=== PATIENT | female | born 1960 | race Caucasian/White ===

== ENCOUNTER 2020-11-08 15:37 | Day surgery (SDCO) | payer OTHER ==
[~2020-11-08] VITALS: Ht 162.6 cm; Wt 86.4 kg
[~2020-11-08 15:37] MED LIST: ANORO ELLIPTA1 EACH INH; COLACE100 MG PO; Dulera INH; FEOSOL325 MG PO; K-DUR20 MEQ PO; LASIX20 MG PO; MOBIC15 MG PO; NEURONTIN100 MG PO; NIZORAL CREAM 330 GM TOP; PRAVACHOL40 MG PO; PRILOSEC20 MG PO; PRINIVIL20 MG PO; PROAIR HFA8.5 GM INH; REQUIP4 MG PO; TRAMADOL HCL50 MG PO; TRAZODONE HCL100 MG PO; TRELEGY ELLIPT1 EACH PO; VENTOLIN HFA IN18 GM PO; ZOCOR40 MG PO; ZOLOFT100 M1 PO; ZYPREXA 5MG TABL5 MG PO
[2020-11-08 16:37] LABS: BASOPHIL 0.6 % (0-2); EOSINOPHIL 6.2 % (0-5); HCT 42.6 % (37.0-47.0); HGB 13.7 g/dl (12.5-16.0); LYMPHOCYTE 28.1 % (15-48); MCH 29.7 pg (25.0-31.0); MCHC 32.2 g/dL (32.0-36.0); MCV 92.2 fL (78.0-100.0); MONOCYTE 6.6 % (0-12); MPV 11.4 fL (6.0-9.5); NEUTROPHIL 58.2 % (41-80); NRBC 0; PLT 156 K/uL (150-400); RBC 4.62 M/uL (4.20-5.40); WBC 6.3 K/uL (4.0-10.5)
[2020-11-08 16:56] LABS: ALBUMIN 3.8 g/dL (3.4-5.0); BILIRUBIN - TOTAL 0.7 mg/dL (0.2-1.0); CREATININE 0.84 mg/dL (0.51-0.95); GLOBULIN (CALCULATION) 2.5 g/dL; POTASSIUM 4.6 mmol/L (3.5-5.1); TOTAL PROTEIN 6.3 g/dL (6.4-8.2)
[2020-11-08 17:03] LABS: PRO-BNP 173 pg/mL (<125)
[2020-11-08 17:35] LABS: BILIRUBIN NEGATIVE (NEGATIVE); BLOOD NEGATIVE Ery/uL (NEGATIVE); CLARITY CLEAR (CLEAR); COLOR YELLOW (YELLOW); GLUCOSE (U) NORMAL (NORMAL); LEUKOCYTES NEGATIVE Leu/uL (NEGATIVE); NITRITE NEGATIVE (NEGATIVE); PROTEIN NEGATIVE (NEGATIVE); SPECIFIC GRAVITY 1.015 (1.001-1.030); UROBILINOGEN 0.2 mg/dL (0.2-1.0)
[2020-11-08 18:34] LABS: CORONAVIRUS 2019 SARS-COV-2 POSITIVE (NEGATIVE); INFLUENZA A NAA NEGATIVE (NEGATIVE)
[2020-11-09 03:07] LABS: CREATININE 1.1 mg/dL (0.51-0.95); MAGNESIUM 2.3 mg/dL (1.8-2.4); POTASSIUM 4.6 mmol/L (3.5-5.1)
[2020-11-09 03:22] LABS: BASOPHIL 0.2 % (0-2); EOSINOPHIL 0.2 % (0-5); HCT 40.3 % (37.0-47.0); HGB 13.2 g/dl (12.5-16.0); LYMPHOCYTE 9.3 % (15-48); MCH 30.3 pg (25.0-31.0); MCHC 32.8 g/dL (32.0-36.0); MCV 92.6 fL (78.0-100.0); MONOCYTE 0.7 % (0-12); MPV 11.5 fL (6.0-9.5); NEUTROPHIL 89.1 % (41-80); NRBC 0; PLT 155 K/uL (150-400); RBC 4.35 M/uL (4.20-5.40); RDW 13.8 % (11.5-14.0); WBC 6.1 K/uL (4.0-10.5)
[2020-11-10 06:17] LABS: BASOPHIL 0 % (0-2); EOSINOPHIL 0 % (0-5); HCT 39.6 % (37.0-47.0); HGB 12.5 g/dl (12.5-16.0); LYMPHOCYTE 7.1 % (15-48); MCH 29.8 pg (25.0-31.0); MCHC 31.6 g/dL (32.0-36.0); MCV 94.3 fL (78.0-100.0); MONOCYTE 3.6 % (0-12); MPV 11.9 fL (6.0-9.5); NEUTROPHIL 88.6 % (41-80); NRBC 0; PLT 160 K/uL (150-400); RDW 14.2 % (11.5-14.0)
[2020-11-10 06:58] LABS: ALBUMIN 3.4 g/dL (3.4-5.0); BILIRUBIN - TOTAL 0.3 mg/dL (0.2-1.0); BUN/CREAT RATIO (CALC) 25.5 RATIO; CREATININE 0.94 mg/dL (0.51-0.95); GLOBULIN (CALCULATION) 2.9 g/dL; MAGNESIUM 2.2 mg/dL (1.8-2.4); PHOSPHORUS 3.7 mg/dL (2.6-4.7); TOTAL PROTEIN 6.3 g/dL (6.4-8.2)
--- NOTE | 2020-11-11 05:24 | NUR ---
PANCHO MCDONALD RN VERIFED THAT ALL DOCUMENTATION WAS TRUE AND ACCURATE.
[2020-11-11] MEDS ORDERED: LASIX20 MG PO (10:01)
[2020-11-11] MEDS ORDERED: ZINC SULFATE220 M1 PO (10:01)
[2020-11-11] MEDS ORDERED: THIAMINE HCL100 MG PO (10:01)
[2020-11-11] MEDS ORDERED: DEXAMETHASONE 2M2 MG PO (10:01)
[2020-11-11] MEDS ORDERED: DUONEB 2.5-0.5M1 AMP INH (10:01)
[2020-11-11] MEDS ORDERED: ASCORBIC ACID500 MG PO (10:01)
[2020-11-11] MEDS ORDERED: DOXYCYCLINE MO100 MG PO (10:01)
[2020-11-11] MEDS ORDERED: CEFDINIR300 MG PO (10:01)
[2020-11-11] MEDS ORDERED: VITAMIN D31250 MC1 PO (10:01)
[2020-11-11] MEDS ORDERED: NORCO 5-325 TA1 EACH PO (10:52)
[2020-11-11] MEDS ORDERED: NICOTINE PATCH1 EAC2 TD (11:33)
--- NOTE | 2020-11-11 13:40 | NUR ---
11/11/20 Ms. Reyes lies at home with her spouse. She was indepedent prior to admissiom. Per pt choice, referrals have been made to [facility] for a 3in1 and 02 and [facility]. Affliation explained. [facility] was notified of discharge.
== END 2020-11-11 14:22 | disposition home health service (06) ==
LOC: FER 15:37 → FMS 20:01
PROVIDERS: Allergy & Immunology; Nurse Practitioner; Nurse Practitioner Family; ADMIT Internal Medicine
DX: U07.1 COVID-19 (principal); J12.82 Pneumonia due to coronavirus disease 2019; J96.91 Respiratory failure, unspecified with hypoxia; J44.1 Chronic obstructive pulmonary disease with (acute) exacerbation; I50.9 Heart failure, unspecified; K21.9 Gastro-esophageal reflux disease without esophagitis; F17.210 Nicotine dependence, cigarettes, uncomplicated; Z85.51 Personal history of malignant neoplasm of bladder; Z79.899 Other long term (current) drug therapy; Z88.5 Allergy status to narcotic agent; Z88.6 Allergy status to analgesic agent
CPT/HCPCS: 36415; 36600; 71045; 71101; 80048; 80053; 81003; 82803; 83605; 83735; 83880; 84100; 84484; 85025; 85379; 93005; 94010; 94640; 94760; 94762; 97116; 97162; 97530-GP; C9399; G0378; J0696; J1100; J1650; J2405; J2920; J2930; J7050; J7120; U0002

== ENCOUNTER 2022-01-16 06:32 | Inpatient (IN) | payer OTHER ==
[~2022-01-16] VITALS: Ht 162.6 cm; Wt 85.0 kg
[~2022-01-16 06:32] MED LIST changes: +ASCORBIC ACID500 MG PO; +CEFDINIR300 MG PO; +DEXAMETHASONE 2M2 MG PO; +DOXYCYCLINE MO100 MG PO; +DUONEB 2.5-0.5M1 AMP INH; +NICOTINE PATCH1 EAC2 TD; +NORCO 5-325 TA1 EACH PO; +THIAMINE HCL100 MG PO; +VITAMIN D31250 MC1 PO; +ZINC SULFATE220 M1 PO
[2022-01-16 07:34] LABS: RETICULOCYTE COUNT 1.8 % (1.0-2.0)
[2022-01-16 07:36] LABS: CORONAVIRUS 2019 SARS-COV-2 NEGATIVE (NEGATIVE); INFLUENZA A NAA NEGATIVE (NEGATIVE)
[2022-01-16 07:37] LABS: INR 0.97 (0.9-1.2); PROTHROMBIN TIME 12.3 SECONDS (11.8-13.4)
[2022-01-16 07:38] LABS: PTT 29.3 SECONDS (24.4-34.7)
[2022-01-16 08:06] LABS: LACTIC ACID 0.9 mmol/L (0.4-1.9)
[2022-01-16 08:53] LABS: ALBUMIN 4.3 g/dL (3.4-5.0); ALKALINE PHOSHATASE 80 U/L (46-116); ALT 32 U/L (14-59); AST 32 U/L (15-37); BILIRUBIN - TOTAL 0.5 mg/dL (0.2-1.0); BUN 14 mg/dL (7-18); BUN/CREAT RATIO (CALC) 15.9 RATIO; CHLORIDE 98 mmol/L (98-107); CO2 (BICARBONATE) 35 mmol/L (21-32); CREATININE 0.88 mg/dL (0.51-0.95); GLOBULIN (CALCULATION) 3.6 g/dL; GLUCOSE 120 mg/dL (74-106); TOTAL PROTEIN 7.9 g/dL (6.4-8.2)
[2022-01-16 09:35] LABS: BASOPHIL 0.4 % (0-2); EOSINOPHIL 0.4 % (0-5); HCT 42.3 % (37.0-47.0); HGB 13.6 g/dl (12.5-16.0); LYMPHOCYTE 13.4 % (15-48); MCH 30.1 pg (25.0-31.0); MCHC 32.2 g/dL (32.0-36.0); MCV 93.6 fL (78.0-100.0); MONOCYTE 8.8 % (0-12); MPV 12.5 fL (6.0-9.5); NEUTROPHIL 76.6 % (41-80); NRBC 0; PLT 118 K/uL (150-400); RBC 4.52 M/uL (4.20-5.40); RDW 13.7 % (11.5-14.0); WBC 5.4 K/uL (4.0-10.5)
[2022-01-16 10:20] LABS: BILIRUBIN NEGATIVE (NEGATIVE); BLOOD NEGATIVE Ery/uL (NEGATIVE); CLARITY CLEAR (CLEAR); COLOR YELLOW (YELLOW); GLUCOSE (U) NORMAL (NORMAL); LEUKOCYTES NEGATIVE Leu/uL (NEGATIVE); NITRITE NEGATIVE (NEGATIVE); PROTEIN 1+ mg/dL (NEGATIVE); SPECIFIC GRAVITY >=1.030 (1.001-1.030); UROBILINOGEN 0.2 mg/dL (0.2-1.0)
[2022-01-16 11:11] LABS: BACTERIA TRACE; MUCOUS TRACE
[2022-01-16] MEDS ORDERED: TRELEGY ELLIPT1 EACH INH (12:31)
[2022-01-16] MEDS ORDERED: ROPINIROLE HCL4 MG PO (12:32)
[2022-01-16] MEDS ORDERED: ZYPREXA 5MG TABL5 MG PO (12:33)
[2022-01-16] MEDS ORDERED: ZOLOFT100 MG PO (12:34)
[2022-01-16] MEDS ORDERED: VENTOLIN HFA IN18 GM INH (12:35)
[2022-01-16] MEDS ORDERED: LASIX20 MG PO (12:35)
[2022-01-16] MEDS ORDERED: POTASSIUM CHLO10 MEQ PO (12:38)
[2022-01-16] MEDS ORDERED: ZOCOR40 MG PO (12:39)
[2022-01-16] MEDS ORDERED: PRINIVIL10 MG PO (12:40)
[2022-01-16] MEDS ORDERED: TOPROL XL 25MG25 MG PO (12:41)
[2022-01-17 06:50] LABS: BASOPHIL 0.2 % (0-2); EOSINOPHIL 0 % (0-5); HGB 12.1 g/dl (12.5-16.0); LYMPHOCYTE 9.4 % (15-48); MCH 30.1 pg (25.0-31.0); MCHC 31.8 g/dL (32.0-36.0); MCV 94.5 fL (78.0-100.0); MONOCYTE 2.9 % (0-12); MPV 11.4 fL (6.0-9.5); NEUTROPHIL 86.3 % (41-80); NRBC 0; RBC 4.02 M/uL (4.20-5.40); RDW 13.4 % (11.5-14.0); WBC 4.2 K/uL (4.0-10.5)
[2022-01-17 06:54] LABS: PLT 106 K/uL (150-400)
[2022-01-17 07:17] LABS: ALBUMIN 3.6 g/dL (3.4-5.0); BILIRUBIN - TOTAL 0.3 mg/dL (0.2-1.0); BUN/CREAT RATIO (CALC) 27.6 RATIO; CREATININE 0.87 mg/dL (0.51-0.95); GLOBULIN (CALCULATION) 3.5 g/dL; POTASSIUM 4.4 mmol/L (3.5-5.1); TOTAL PROTEIN 7.1 g/dL (6.4-8.2)
--- NOTE | 2022-01-17 16:03 | NUR ---
01/17/22 Ms. Reyes lives at home with her spouse. She has 02 at 2 L and poratable tank from [facility]. Per Dr. Davis, will monitor for need in change in 02 order to 1 L.
[2022-01-18 06:39] LABS: BASOPHIL 0 % (0-2); EOSINOPHIL 0 % (0-5); HCT 36.3 % (37.0-47.0); HGB 11.6 g/dl (12.5-16.0); LYMPHOCYTE 8.2 % (15-48); MCH 29.8 pg (25.0-31.0); MCV 93.3 fL (78.0-100.0); MONOCYTE 3.4 % (0-12); NEUTROPHIL 87.9 % (41-80); NRBC 0; PLT 124 K/uL (150-400); RBC 3.89 M/uL (4.20-5.40); RDW 13.3 % (11.5-14.0); WBC 6.4 K/uL (4.0-10.5)
[2022-01-18 07:44] LABS: CREATININE 0.94 mg/dL (0.51-0.95); FOLIC ACID (SERUM) 17.3 ng/mL (8.6-58.9); MAGNESIUM 2.6 mg/dL (1.8-2.4); PHOSPHORUS 3.7 mg/dL (2.6-4.7); POTASSIUM 4.2 mmol/L (3.5-5.1)
--- NOTE | 2022-01-18 14:56 | NUR ---
TURNED OFF HEPARIN DRIP AT THIS TIME. ORDER TO DC 01/17/2022 AT 2020. WAS GIVEN IN REPORT THAT IT WAS STILL RUNNING AT 810 UNITS/HR. PTT AT 0800 WAS THERAPUTIC THIS AM.
[2022-01-21 03:57] LABS: BASOPHIL 0.3 % (0-2); EOSINOPHIL 0 % (0-5); HGB 12.1 g/dl (12.5-16.0); MCH 29.7 pg (25.0-31.0); MCHC 31.8 g/dL (32.0-36.0); MCV 93.1 fL (78.0-100.0); MONOCYTE 3.3 % (0-12); MPV 11.1 fL (6.0-9.5); NRBC 0; PLT 140 K/uL (150-400); RBC 4.08 M/uL (4.20-5.40); RDW 13.2 % (11.5-14.0); WBC 5.8 K/uL (4.0-10.5)
[2022-01-21 04:10] LABS: IRON % SATURATION 68.2 %SAT (20-50)
[2022-01-21 04:52] LABS: BUN 24 mg/dL (7-18); BUN/CREAT RATIO (CALC) 29.6 RATIO; CHLORIDE 103 mmol/L (98-107); CO2 (BICARBONATE) 38 mmol/L (21-32); CREATININE 0.81 mg/dL (0.51-0.95); GLUCOSE 142 mg/dL (74-106); MAGNESIUM 2.2 mg/dL (1.8-2.4); POTASSIUM 4.9 mmol/L (3.5-5.1)
[2022-01-21 04:54] LABS: C-REACTIVE PROTEIN < 0.20 mg/dL (<=0.90)
--- NOTE | 2022-01-21 19:12 | NUR ---
EXTENSIVE EDUCATION DONE ON RELAXATION AND PURSED LIP BREATHING. IMPORTANCE OF DIVERSIONARY ACTIVITIES LIKE MACRAMA, READING, FIDGET TOYS, COLORING OR MEDITATION.
[2022-01-22 06:43] LABS: BUN/CREAT RATIO (CALC) 32.5 RATIO; CREATININE 0.77 mg/dL (0.51-0.95); POTASSIUM 4.7 mmol/L (3.5-5.1)
[2022-01-22] MEDS ORDERED: ATARAX25 MG PO ×2 (18:09→18:11)
[2022-01-22] MEDS ORDERED: LEVAQUIN750 MG PO ×2 (18:09→18:11)
[2022-01-22] MEDS ORDERED: DUONEB 2.5-0.5M1 AMP NEB ×2 (18:09→18:11)
[2022-01-22] MEDS ORDERED: XANAX0.5 MG PO ×2 (18:09→18:12)
[2022-01-22] MEDS ORDERED: MEDROL 4MG DOSEP4 MG PO (19:11)
== END 2022-01-22 19:30 | disposition home health service (06) | DRG 189 ==
LOC: FER 06:32 → FTCU 10:17
PROVIDERS: Emergency Medicine; Nurse Practitioner; ADMIT Internal Medicine
PROC: 5A09357 Assistance with Respiratory Ventilation, Less than 24 Consecutive Hours, Continuous Positive Airway Pressure (ICD-10-PCS; 2022-01-16)
PROC: 5A09357 Assistance with Respiratory Ventilation, Less than 24 Consecutive Hours, Continuous Positive Airway Pressure (ICD-10-PCS; 2022-01-17)
PROC: 5A09357 Assistance with Respiratory Ventilation, Less than 24 Consecutive Hours, Continuous Positive Airway Pressure (ICD-10-PCS; 2022-01-18)
PROC: 5A09357 Assistance with Respiratory Ventilation, Less than 24 Consecutive Hours, Continuous Positive Airway Pressure (ICD-10-PCS; 2022-01-19)
PROC: 5A09357 Assistance with Respiratory Ventilation, Less than 24 Consecutive Hours, Continuous Positive Airway Pressure (ICD-10-PCS; 2022-01-20)
PROC: 5A09357 Assistance with Respiratory Ventilation, Less than 24 Consecutive Hours, Continuous Positive Airway Pressure (ICD-10-PCS; principal; 2022-01-21)
DX: J96.01 Acute respiratory failure with hypoxia (principal); I21.A1 Myocardial infarction type 2; J96.02 Acute respiratory failure with hypercapnia; D50.9 Iron deficiency anemia, unspecified; F41.0 Panic disorder [episodic paroxysmal anxiety]; J43.2 Centrilobular emphysema; I25.10 Atherosclerotic heart disease of native coronary artery without angina pectoris; Z20.822 Contact with and (suspected) exposure to COVID-19; K21.9 Gastro-esophageal reflux disease without esophagitis; Z96.651 Presence of right artificial knee joint; I11.0 Hypertensive heart disease with heart failure; I50.9 Heart failure, unspecified; J02.9 Acute pharyngitis, unspecified; F17.210 Nicotine dependence, cigarettes, uncomplicated; Z98.890 Other specified postprocedural states; Z82.5 Family history of asthma and other chronic lower respiratory diseases; Z82.3 Family history of stroke; Z85.51 Personal history of malignant neoplasm of bladder; Z88.5 Allergy status to narcotic agent; Z88.6 Allergy status to analgesic agent; Z79.899 Other long term (current) drug therapy
CPT/HCPCS: 36415; 36600; 71045; 71275; 80048; 80053; 80162; 81001; 82607; 82728; 82746; 82803; 83540; 83550; 83605; 83735; 83880; 84100; 84145; 84484; 85025; 85610; 85730; 86140; 87040; 87070; 87186; 87205; 93005; 94640; 94660; 94668; 97166; 97530; J0456; J0696; J1100; J1644; J1650; J1956; J2060; J2916; J2930; J3475; J7030; J7050; Q9967; U0002

== ENCOUNTER 2022-01-30 15:20 | Emergency (ER) | payer OTHER ==
[~2022-01-30 15:20] MED LIST changes: +ATARAX25 MG PO; +DUONEB 2.5-0.5M1 AMP NEB; +LEVAQUIN750 MG PO; +MEDROL 4MG DOSEP4 MG PO; +POTASSIUM CHLO10 MEQ PO; +PRINIVIL10 MG PO; +ROPINIROLE HCL4 MG PO; +TOPROL XL 25MG25 MG PO; +TRELEGY ELLIPT1 EACH INH; +VENTOLIN HFA IN18 GM INH; +XANAX0.5 MG PO; +ZOLOFT100 MG PO
[2022-01-30 18:23] LABS: BASOPHIL 0.2 % (0-2); EOSINOPHIL 0.5 % (0-5); HCT 40.8 % (37.0-47.0); HGB 13.5 g/dl (12.5-16.0); LYMPHOCYTE 9.9 % (15-48); MCH 30.1 pg (25.0-31.0); MCHC 33.1 g/dL (32.0-36.0); MCV 91.1 fL (78.0-100.0); MPV 11.8 fL (6.0-9.5); NEUTROPHIL 83.9 % (41-80); NRBC 0; PLT 187 K/uL (150-400); RBC 4.48 M/uL (4.20-5.40); RDW 14.1 % (11.5-14.0); WBC 16.9 K/uL (4.0-10.5)
[2022-01-30 18:41] LABS: ALBUMIN 3.4 g/dL (3.4-5.0); BILIRUBIN - TOTAL 0.9 mg/dL (0.2-1.0); BUN/CREAT RATIO (CALC) 23.2 RATIO; CREATININE 1.94 mg/dL (0.51-0.95); GLOBULIN (CALCULATION) 3.3 g/dL; POTASSIUM 4.6 mmol/L (3.5-5.1); TOTAL PROTEIN 6.7 g/dL (6.4-8.2)
[2022-01-30] MEDS ORDERED: AMOX TR-K CLV1 EAC4 PO (20:59)
[2022-01-30] MEDS ORDERED: NORCO 5-325 TA1 EACH PO (20:59)
== END 2022-01-30 21:40 | disposition home or self-care (01) ==
LOC: FER 15:20
PROVIDERS: Emergency Medicine
DX: I95.9 Hypotension, unspecified (principal); E86.0 Dehydration; N17.9 Acute kidney failure, unspecified; R51.9 Headache, unspecified; K08.89 Other specified disorders of teeth and supporting structures; J44.9 Chronic obstructive pulmonary disease, unspecified; I10 Essential (primary) hypertension; Z28.310 Unvaccinated for COVID-19; Z88.5 Allergy status to narcotic agent
CPT/HCPCS: 36415; 80053; 85025; J7030